=== PATIENT | female | born 1970 | race Caucasian/White ===

== ENCOUNTER → 2020-11-24 | Outpatient (CLI) | payer BC ==
--- NOTE | 2020-11-24 14:11 | RAD ---
3 view study of the right wrist Clinical indications: Right wrist pain after a fall today. FINDINGS: No acute fracture or dislocation or lytic process is seen. Scaphoid bone is intact. IMPRESSION: No acute fracture. Electronically signed by: Jovani Lyon MD (11/24/2020 2:09 PM) [id number]
== END ==
LOC: PMG 13:40
PROVIDERS: ATTEND Nurse Practitioner Family
DX: S69.91XA Unspecified injury of right wrist, hand and finger(s), initial encounter (principal); W19.XXXA Unspecified fall, initial encounter; Y93.89 Activity, other specified; Y92.89 Other specified places as the place of occurrence of the external cause; Y99.8 Other external cause status
CPT/HCPCS: 73110

== ENCOUNTER → 2020-12-13 | Outpatient (CLI) | payer BC ==
--- NOTE | 2020-12-13 17:35 | RAD ---
EXAM: PA, oblique and lateral views of the right wrist DATE: 12/13/2020 3:41 PM INDICATION: Reason: WRIST PAIN / Spl. Instructions: / History: COMPARISON: No Prior FINDINGS/ IMPRESSION: Subtle impaction fracture is seen within the distal radial metaphysis with intra-articular extension to the scaphoid fossa. Mild associated soft tissue swelling. Electronically signed by: Ryan Judd MD (12/13/2020 5:32 PM) [id number]
== END ==
LOC: RAD 15:30
PROVIDERS: ATTEND Orthopaedic Surgery
DX: S52.391A Other fracture of shaft of radius, right arm, initial encounter for closed fracture (principal); X58.XXXA Exposure to other specified factors, initial encounter; Y93.89 Activity, other specified; Y92.89 Other specified places as the place of occurrence of the external cause; Y99.8 Other external cause status; M79.89 Other specified soft tissue disorders
CPT/HCPCS: 73110

== ENCOUNTER → 2020-12-16 | Outpatient (CLI) | payer BC | LOC: LAB 12:25 | PROVIDERS: ATTEND Orthopaedic Surgery | DX: S52.501A Unspecified fracture of the lower end of right radius, initial encounter for closed fracture (principal); X58.XXXA Exposure to other specified factors, initial encounter; Y93.89 Activity, other specified; Y92.89 Other specified places as the place of occurrence of the external cause; Y99.8 Other external cause status | CPT/HCPCS: 82306 ==

== ENCOUNTER → 2020-12-30 | Outpatient (CLI) | payer BC ==
--- NOTE | 2020-12-30 18:01 | RAD ---
EXAM: DUAL ENERGY X-RAY ABSORPTIOMETRY (DEXA). HISTORY: Postmenopausal screening. FINDINGS: The lowest measured T-score is -1.5 in the right femoral neck, based on a bone mineral dens ity of 0.758 g/cm^2. Refer to the worksheets for full detail. No comparison examinations are available. IMPRESSION: 1. Low bone mass. Bone mineral density yields a T-score between -1.0 and -2.5. Fracture risk is incre ased. 2. FRAX report: Not calculated. METHODOLOGY: Dual energy x-ray absorptiometry was performed to measure bone mineral density. The foll owing analysis is based on the 2019 Official Positions of the International Society for Clinical Dens itometry: Measurements of the hips and the average of L1-L4 are preferred. When the spine and/or hip cannot be feasibly measured or interpreted, or in the setting of hyperparathyroidism, distal radial bone minera l density may be measured. The lumbar spine T-score is based on the average bone mineral density of L1-L4. In the setting of art ifact or anatomic abnormality, some lumbar levels may be excluded, and the remaining levels used for calculation. A single lumbar level is not used for diagnosis, and if only a single level is available for assessment, another anatomic site will be used to assign a diagnosis. The hip T-score is based on the bone mineral density measurement of the femoral neck or total proxima l femur of either side, whichever is lowest. Bilateral mean values are not used for diagnosis. The forearm T-score is derived from 33% of the distal radius of the nondominant forearm. Electronically signed by: Alanna Verduzco MD (12/30/2020 5:59 PM) [facility]
== END ==
LOC: DXRAD 14:40
PROVIDERS: ATTEND Orthopaedic Surgery
DX: M81.8 Other osteoporosis without current pathological fracture (principal)
CPT/HCPCS: 77080

== ENCOUNTER → 2021-01-26 | Outpatient (CLI) | payer BC ==
--- NOTE | 2021-01-26 16:40 | RAD ---
Three-view right wrist study: CLINICAL INDICATION: Right wrist pain. Follow-up of distal right radial fracture. COMPARISON: December 13, 2020. FINDINGS: Again seen is a nondisplaced impacted fracture of the lateral distal right radial metaphysi s and epiphysis with intra-articular extension. No articular surface offset is seen. Overall, the fra cture is unchanged in appearance from the previous study and the articular surface is not yet complet hi healed. Radial carpal articulation is maintained. Scaphoid bone is intact. No lytic process is se en. IMPRESSION: Unchanged impacted fracture of the distal right radius. Electronically signed by: Jovani Lyon MD (01/26/2021 4:38 PM) [id number]
== END ==
LOC: RAD 15:34
PROVIDERS: ATTEND Orthopaedic Surgery
DX: S52.501A Unspecified fracture of the lower end of right radius, initial encounter for closed fracture (principal); X58.XXXA Exposure to other specified factors, initial encounter; Y93.89 Activity, other specified; Y92.89 Other specified places as the place of occurrence of the external cause; Y99.8 Other external cause status
CPT/HCPCS: 73110